=== PATIENT | male | born 1990 | race Caucasian/White ===

== ENCOUNTER → 2017-06-09 11:04 | Outpatient (REF) | payer BC, SELFPAY ==
[2017-06-09 13:33] LABS: Basophils % 0.2 % (0.1-2.0); Eosinophils # 0.1 K/mm3 (0.0-0.4); Hematocrit 53.1 % (42.0-52.0); Hemoglobin 17.3 g/dL (14.1-18.0); Lymphocytes # 1.4 K/mm3 (0.7-4.5); Lymphocytes % 9.6 K/mm3 (10-50); Mean Corpuscular HGB Conc 32.7 g/dL (31.8-35.4); Mean Corpuscular Hemoglobin 30.8 pg (27.0-31.2); Mean Corpuscular Volume 94.2 fl (80-94); Mean Platelet Volume 8.5 fl (7.4-10.4); Monocytes # 0.8 K/mm3 (0.1-1.0); Monocytes % 5.7 % (1.7-9.3); Neutrophils # 12.1 K/mm3 (1.8-7.8); Neutrophils % 83.6 % (37.0-80.0); Platelet Count 296 K/mm3 (142-424); Red Blood Count 5.63 M/mm3 (4.60-6.20); White Blood Count 14.5 K/mm3 (4.8-10.8)
[2017-06-09 14:09] LABS: Alanine Aminotransferase 37 U/L (12-78); Albumin Level 4.7 gm/dL (3.4-5.0); Albumin/Globulin Ratio 1.3 (1.1-1.8); Alkaline Phosphatase 108 U/L (46-116); Anion Gap 15.3 mEq/L (5-15); Aspartate Amino Transferase 22 U/L (15-37); Bilirubin,Total 0.5 mg/dL (0.2-1.0); Blood Urea Nitrogen 13 mg/dL (7-18); Calcium 9.5 mg/dL (8.5-10.1); Carbon Dioxide 25 mmol/L (21.0-32.0); Chloride 104 mmol/L (98-107); Chol/HDL Ratio 3.5 (1-3.5); Cholesterol 186 mg/dL (140-200); Creatinine,Serum 1.18 mg/dL (0.70-1.30); Estimated Glomerular Filt Rate 75 ml/min (>60); Free T4 (Free Thyroxine) 1.12 ng/dl (0.76-1.46); GFR (African American) 90 ML/MIN (>60); Globulin 3.5 gm/dl (1.3-3.2); Glucose 105 mg/dL (74-106); HDL Cholesterol 53 mg/dL (27-67); LDL Cholesterol 112 mg/dL (0-130); Potassium 4.3 mmoL/L (3.5-5.1); Sodium 140 mmol/L (136-145); Thyroid Stimulating Hormone 1.56 uIU/ml (0.358-3.740); Total Protein,Serum 8.2 gm/dL (6.4-8.2); Triglycerides 105 mg/dL (30-200); VLDL Cholesterol 21 mg/dL (0-40)
== END ==
LOC: LAB 11:04
PROVIDERS: Visit Provider Emergency Medicine
DX: I10 Essential (primary) hypertension (principal)
CPT/HCPCS: 80053; 80061; 84439; 84443; 85025

== ENCOUNTER → 2017-06-25 12:31 | Outpatient (CLI) | payer BC, SELFPAY ==
--- NOTE | 2017-06-25 08:29 | CA_ITS ---
PROCEDURE: 2-D M-mode and color Doppler study INDICATIONS FOR THE TEST: Chest pain COPD Heart Murmur Tobacco Smoking+ Palpitations Fatigue Syncope Edema Hypertension+Diabetes Mellitus Rheumatic Fever SOB MCDANIEL Obesity Hyperlipidemia Family History HD+ Additional History PATIENT INFORMATION HEIGHT: 71 WEIGHT:167 GENDER: Male B/P:154/92 2-D/M-MODE INTERPRETATION: 2-D MEASUREMENTS OBSERVED VALUES IN CMS Right Ventricular Dimension (RVDd) 1.9 Interventricular Septum (Thickness)(IVsd) 1.0 Left Ventricular Internal Dimensions(LVIDd) 4.5 Left Ventricular Posterior Wall (Thickness)(LVPWd) 0.9 Aortic Root 2.8 Aortic Cusp Separation 2.1 Left Atrial Dimensions (LAD) 3.6 2D 1. Left atrium is normal size, left ventricle is normal size, there is no concentric left ventricular hypertrophy, visually estimated ejection fraction 55% with no obvious regional wall motion abnormality. 2. The right atrium and right ventricle are normal size and contractility. 3. The aortic mitral and tricuspid valve are structurally normal. 4. The pulmonic valve is poorly visualized. 5. No significant pericardial effusion noted. DOPPLER INTERROGATION: Doppler interrogation of the aortic, mitral and tricuspid valve reveals presence of mild mitral and tricuspid regurgitation of no hemodynamic significance, diastolic parameters are within normal range. CONCLUSION: 1. Normal left ventricular size, preserved left ventricular systolic function, visually estimated ejection fraction 55% with no obvious regional wall motion abnormality, diastolic parameters are within normal range. 2. Mild mitral and tricuspid addition 3. No significant pericardial effusion noted.
--- NOTE | 2017-06-25 13:17 | XR_ITS ---
XR shoulder RT min 2V COMPARISON: None HISTORY: Right shoulder pain. TECHNIQUE: 3 views right shoulder FINDINGS: Is a comminuted fracture of the distal clavicle with 2 small fracture fragments between the distal clavicle and the acromion process of the scapula. The humeral head and glenoid appear intact. The soft tissues are normal. IMPRESSION: Common and fracture distal clavicle, this may not be acute as the fracture margins appear to be somewhat smoother than expected for an acute fracture
--- NOTE | 2017-06-25 13:17 | XR_ITS ---
XR scapula RT COMPARISON: None HISTORY: Scapular pain after injury TECHNIQUE: 3 views right scapula FINDINGS: The scapula is intact with no evidence of recent or old fracture. Soft tissues are normal. Again noted are the fracture fragments of the distal clavicle and again I suspect this is likely not an acute fracture but she is clinical correlation for tenderness. IMPRESSION: Right scapula negative for fracture
--- NOTE | 2017-06-25 13:17 | XR_ITS ---
XR chest 2V INDICATION: Cough COMPARISON: Portable spine chest 01/21/2015 FINDINGS: The cardiovascular structures are unremarkable. No mediastinal shift or hilar mass is evident. The lungs are well expanded and clear bilaterally. The costophrenic sulci are sharp. No significant bony anomalies are apparent. There are small calcified hilar nodes bilaterally. IMPRESSION: Negative chest.
== END ==
PROVIDERS: Family Provider Family Medicine; PCP Emergency Medicine; Visit Provider Emergency Medicine
DX: M25.511 Pain in right shoulder (principal); R05 Cough
CPT/HCPCS: 71046; 73010; 73030; 93306

== ENCOUNTER → 2018-06-10 14:22 | Outpatient (CLI) | payer BC, SELFPAY ==
[2018-06-10 15:08] LABS: Blood Urea Nitrogen 11 mg/dL (7-18); Calcium 9.5 mg/dL (8.5-10.1); Carbon Dioxide 28 mmol/L (21.0-32.0); Chloride 107 mmol/L (98-107); Creatinine,Serum 0.96 mg/dL (0.70-1.30); Estimated Glomerular Filt Rate 94 ml/min (>60); GFR (African American) 114 ML/MIN (>60); Glucose 101 mg/dL (74-106); Sodium 144 mmol/L (136-145)
[2018-06-10 15:39] LABS: Basophils # 0.1 K/mm3 (0-0.2); Basophils % 0.7 % (0.1-2.0); Eosinophils # 0.1 K/mm3 (0.0-0.4); Eosinophils % 1.6 % (0.1-12.0); Hematocrit 48.9 % (42.0-52.0); Hemoglobin 16.3 g/dL (14.1-18.0); Lymphocytes % 22.5 % (10-50); Mean Corpuscular HGB Conc 33.3 g/dL (31.8-35.4); Mean Corpuscular Hemoglobin 30.8 pg (27.0-31.2); Mean Corpuscular Volume 92.4 fl (80-94); Mean Platelet Volume 6.8 fl (7.4-10.4); Monocytes # 0.5 K/mm3 (0.1-1.0); Monocytes % 5.2 % (1.7-9.3); Neutrophils # 6.3 K/mm3 (1.8-7.8); Platelet Count 278 K/mm3 (142-424); Red Blood Count 5.29 M/mm3 (4.60-6.20); Red Cell Distribution Width 12.9 % (11.5-17.5)
== END ==
PROVIDERS: Visit Provider Orthopaedic Surgery
DX: S62.324A Displaced fracture of shaft of fourth metacarpal bone, right hand, initial encounter for closed fracture (principal)
CPT/HCPCS: 36415; 80048; 80053; 85025

== ENCOUNTER → 2018-06-29 13:06 | Outpatient (CLI) | payer BC, SELFPAY ==
--- NOTE | 2018-06-29 13:11 | XR_ITS ---
XR hand RT min 3V HISTORY: Follow-up fracture/ORIF ITS.REASON: sp ORIF RT 4th [facility] dos 06/13/18 ORDERING PHYSICIAN: Jared Copeland MD PATIENT AGE: 28 years COMPARISON: 06/07/2018 FINDINGS: A bone plate is been placed over the mid and proximal aspect of the fourth metacarpal stabilizing the comminuted fracture which is in good alignment. One small fragment is displaced radially and anteriorly about 3 mm. There is an old fifth metacarpal fracture. 2 screws are present within the middle phalanx of the fourth digit. IMPRESSION: Good alignment status post ORIF fourth metacarpal fracture. No significant callus formation
== END ==
PROVIDERS: PCP Emergency Medicine; Visit Provider Orthopaedic Surgery
DX: S62.308A Unspecified fracture of other metacarpal bone, initial encounter for closed fracture (principal); Z48.89 Encounter for other specified surgical aftercare
CPT/HCPCS: 73130

== ENCOUNTER → 2018-07-21 08:54 | Outpatient (CLI) | payer BC, SELFPAY ==
--- NOTE | 2018-07-21 09:00 | XR_ITS ---
XR hand RT min 3V HISTORY: Follow-up ORIF fourth metacarpal fracture ITS.REASON: sp ORIF RT 4TH [facility], dos 06/13/18 ORDERING PHYSICIAN: Jared Copeland MD PATIENT AGE: 28 years COMPARISON: 06/29/2018 FINDINGS: Good alignment status post ORIF fourth metacarpal fracture. Posterior bone plate remains in place. There is an ununited fragment along the anterior and mid aspect of the fourth metacarpal similar to the previous exam. There does appear to be some callus formation along the ulnar aspect of the fracture. Prior old ORIF of the middle phalanx of the fourth finger. There is an old fifth metacarpal fracture. IMPRESSION: Good alignment status post ORIF fourth metacarpal fracture with small ununited fragment along the palmar aspect
== END ==
PROVIDERS: PCP Emergency Medicine; Visit Provider Orthopaedic Surgery
DX: S62.308A Unspecified fracture of other metacarpal bone, initial encounter for closed fracture (principal); Z48.89 Encounter for other specified surgical aftercare
CPT/HCPCS: 73130

== ENCOUNTER → 2018-07-22 09:09 | Outpatient (CLI) | payer BC, SELFPAY ==
[2018-07-22 09:22] LABS: Basophils # 0.1 K/mm3 (0-0.2); Basophils % 0.4 % (0.1-2.0); Eosinophils # 0.2 K/mm3 (0.0-0.4); Eosinophils % 1.4 % (0.1-12.0); Hematocrit 45.3 % (42.0-52.0); Hemoglobin 15.3 g/dL (14.1-18.0); Lymphocytes # 2.1 K/mm3 (0.7-4.5); Lymphocytes % 19.2 % (10-50); Mean Corpuscular HGB Conc 33.9 g/dL (31.8-35.4); Mean Corpuscular Hemoglobin 31.1 pg (27.0-31.2); Mean Corpuscular Volume 91.7 fl (80-94); Mean Platelet Volume 6.7 fl (7.4-10.4); Monocytes # 0.7 K/mm3 (0.1-1.0); Monocytes % 6.5 % (1.7-9.3); Neutrophils # 7.8 K/mm3 (1.8-7.8); Neutrophils % 72.5 % (37.0-80.0); Platelet Count 328 K/mm3 (142-424); Red Blood Count 4.94 M/mm3 (4.60-6.20); Red Cell Distribution Width 12.8 % (11.5-17.5); White Blood Count 10.8 K/mm3 (4.8-10.8)
[2018-07-22 09:29] LABS: C-Reactive Protein 0.3 mg/L (0.0-0.9)
[2018-07-22 10:18] LABS: Erythrocyte Sedimentation Rate 12 mm/hr (0-15)
== END ==
PROVIDERS: Visit Provider Orthopaedic Surgery
DX: B99.9 Unspecified infectious disease (principal); Z48.89 Encounter for other specified surgical aftercare
CPT/HCPCS: 36415; 85025; 85651; 86140

== ENCOUNTER → 2018-08-01 12:25 | Outpatient (CLI) | payer BC, SELFPAY ==
[2018-08-01 12:34] LABS: Basophils # 0.1 K/mm3 (0-0.2); Basophils % 0.7 % (0.1-2.0); Eosinophils # 0.4 K/mm3 (0.0-0.4); Hematocrit 47.4 % (42.0-52.0); Hemoglobin 15.8 g/dL (14.1-18.0); Lymphocytes # 1.9 K/mm3 (0.7-4.5); Lymphocytes % 20.8 % (10-50); Mean Corpuscular HGB Conc 33.4 g/dL (31.8-35.4); Mean Corpuscular Hemoglobin 31.3 pg (27.0-31.2); Mean Corpuscular Volume 93.7 fl (80-94); Mean Platelet Volume 6.8 fl (7.4-10.4); Monocytes # 0.6 K/mm3 (0.1-1.0); Monocytes % 6.6 % (1.7-9.3); Neutrophils # 6.3 K/mm3 (1.8-7.8); Neutrophils % 67.9 % (37.0-80.0); Platelet Count 360 K/mm3 (142-424); Red Blood Count 5.06 M/mm3 (4.60-6.20); Red Cell Distribution Width 12.7 % (11.5-17.5); White Blood Count 9.3 K/mm3 (4.8-10.8)
[2018-08-01 13:07] LABS: C-Reactive Protein < 0.2 mg/L (0.0-0.9)
[2018-08-01 13:18] LABS: Erythrocyte Sedimentation Rate 12 mm/hr (0-15)
== END ==
PROVIDERS: Visit Provider Orthopaedic Surgery
DX: Z09 Encounter for follow-up examination after completed treatment for conditions other than malignant neoplasm (principal)
CPT/HCPCS: 36415; 85025; 85651; 86140

== ENCOUNTER 2018-08-01 14:08 | Outpatient (RCR) | payer BC, SELFPAY | END 2018-08-01 14:15 | disposition home or self-care (01) | LOC: OT 14:08 | PROVIDERS: Visit Provider Orthopaedic Surgery | DX: S62.324A Displaced fracture of shaft of fourth metacarpal bone, right hand, initial encounter for closed fracture (principal) | CPT/HCPCS: 97763 ==

== ENCOUNTER 2021-09-18 09:09 | Emergency (ER) | payer SELFPAY ==
[2021-09-18 09:14] VITALS: BP 153/93; PULSE 92; RESP 18; TEMP 36.9; O2SAT 98; BMI 26.6
--- NOTE | 2021-09-18 09:32 | HMH.EDGENADL ---
ED Disposition Clinical Impression: Medical clearance for incarceration, Inhalant abuse Disposition: Home, Self-Care Condition on Discharge: Good Referrals: Provider,Referral, [Primary Care Provider] - - Critical Care Critical Care Time: No Attestation: On 09/18/21, the high probability of a clinically significant, sudden or life threatening deterioration of the following system(s) required my full and direct attention, intervention and personal management. The time I documented below is in addition to time spent performing reported procedures but includes the following listed in this critical care notation. Medical Decision Making - Ulises Inquiry Pt receiving controlled substance: No Vital Signs: 09/18/21 09:14 Temperature 98.5 F Temperature Source Oral Pulse Rate [Left Radial] 92 H Respiratory Rate 18 Blood Pressure [Right Arm] 153/93 H Blood Pressure Mean [Right Arm] 113 02 Sat by Pulse Oximetry 98 Oxygen Delivery Method Room Air General Adult HPI - General Chief complaint: Medical Clearance Stated complaint: medical clearence Time Seen by Provider: 09/18/21 09:33 Mode of Arrival: Ambulatory Limitations: No Limitations Description of Symptoms (Recalled from ER Triage Doc. by RN): pt to ed in police custody for medical clearance. pt has no complaints of pain or symptoms. - History of Present Illness HPI narrative: Patient was picked up by police for public intoxication. 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 Police state that initially he was out of it but since mental status is cleared. Currently he has no complaints except that he is depressed and upset with himself. He is not suicidal. He is on medications for depression. Denies any other prescription medications. Did not use any other drugs or alcohol today. Physically he feels fine. - Related Data Home Medications Medication Instructions Recorded Confirmed Escitalopram Oxalate 10 mg PO DAILY 06/10/18 07/21/18 Trazodone HCl 50 mg PO QHS 06/10/18 07/21/18 clonazePAM [Clonazepam] See Rx Instructions .ROUTE .COMPLEX 06/10/18 07/21/18 Previous Rx's Medication Instructions Recorded acetaminophen 300 mg-codeine 30 mg 1 tab PO BID PRN #30 tab 07/13/18 tablet cyclobenzaprine 10 mg tablet 10 mg PO BID #60 tab 07/13/18 clindamycin HCl 300 mg capsule 300 mg PO QID 14 Days #56 cap 08/01/18 sulfamethoxazole 800 1 tab PO BID 14 Days #28 tab 08/01/18 mg-trimethoprim 160 mg tablet Allergies Allergy/AdvReac Type Severity Reaction Status Date / Time No Known Drug Allergies Allergy Unknown -- Verified 08/01/18 13:32 [facility] History - Hepatitis A Screen Attestation statement:: This patient has been screened for Hepatitis A risk factors. I have reviewed the patient's past medical history: Yes Medical History: Reports:: Anxiety, Depression, Hypertension Denies:: Cancer, Diabetes Mellitus Type 1, Diabetes Mellitus Type 2, Internal Pacemaker, MRSA, Seizures Other Medical History: Denies: Blood Transfusion Reaction Other Surgeries: Yes: Other. No: Pacemaker Amputation: No Fractures: Yes (finger) Comment: rt middle finger fx,rt side of jaw,rt hand - Social History Smoking Status: Current every day smoker Tobacco Type: cigarettes # Packs/Day (cigarettes): 1 Alcohol Intake: never Alcohol Intake Frequency:: a few times a week Substance Use Type: marijuana Occupational Status: employed Housing: house Household Members: significant other - Psychiatric History Pschychiatric History:: Reports:: Anxiety, Depression Family Hx:: Cancer, Coronary Artery Disease, Heart Attack, Hypertension ROS Obtained: Yes All systems reviewed & no additional complaints - Cardiovascular Cardiovascular: Denies chest pain - Respiratory Respiratory: Denies shortness of breath - Gastrointestinal Gastrointestingal: Denies: abdominal pain, vomiting Physical Exam - General General appearance: alert, in no apparent distress Comment:
--- NOTE | 2021-09-18 09:33 | PC.NURSE ---
DONOVAN GALEANO at
[2021-09-18 09:44] VITALS: BP 155/89; PULSE 89; RESP 18; TEMP 36.9; O2SAT 99
--- NOTE | 2021-09-18 20:17 | ECG_ITS ---
APPROVED REPORT Exam: Resting ECG HR:110 bpm ECG Measurements Heart Rate 110 AXES AZ 131 P 75 QRSd 117 QRS 61 QT 321 T 52 QTc 386 Conclusion Bi-atrial abnormality with short [place] ABNORMAL RHYTHM ECG UNCONFIRMED REPORT Electronically signed by : Medardo Macario MD 09/19/2021 17:01:13
== END 2021-09-18 09:45 | disposition home or self-care (01) ==
PROVIDERS: Emergency Provider Emergency Medicine
DX: Z02.89 Encounter for other administrative examinations (principal); F18.10 Inhalant abuse, uncomplicated
CPT/HCPCS: 93005; 99282

== ENCOUNTER 2021-09-18 20:11 | Emergency (ER) | payer SELFPAY ==
[2021-09-18 20:10] VITALS: BP 141/92; PULSE 92; RESP 16; TEMP 37.1; O2SAT 98; BMI 25.8
[2021-09-18 20:22] LABS: Microscopic, Urine URINE MICROSCOPIC (MICROSCOPIC)
[2021-09-18 20:27] LABS: Appearance,Urine CLEAR (Clear); Bilirubin,Urine Negative (Negative); Blood, Urine 2+ (Negative); Color,Urine YELLOW (Yellow); Glucose,Urine (UA) Negative (Negative); Ketones,Urine Negative (Negative); Leukocyte Esterase,Urine 1+ (Negative); Nitrate,Urine Negative (Negative); Protein,Urine Negative (Negative); Specific Gravity, Urine 1.015 (1.005-1.030); Urobilinogen,Urine 0.2 EU/dl (0.2)
--- NOTE | 2021-09-18 20:30 | HMH.EDMCLR ---
ED Disposition Clinical Impression: Medical clearance for incarceration, Inhalant abuse Disposition: Home, Self-Care Condition on Discharge: Good Instructions: DI for Substance Use Disorder Additional Instructions: see pcp for follow up - Critical Care Critical Care Time: No Attestation: On , the high probability of a clinically significant, sudden or life threatening deterioration of the following system(s) required my full and direct attention, intervention and personal management. The time I documented below is in addition to time spent performing reported procedures but includes the following listed in this critical care notation. Medical Decision Making - Medical Records Medical records reviewed: Yes: I reviewed the patient's medical records. - Ulises Inquiry Pt receiving controlled substance: No Vital Signs: 09/18/21 20:10 Temperature 98.8 F Temperature Source Oral Pulse Rate [Left Radial] 92 H Respiratory Rate 16 Blood Pressure [Right Arm] 141/92 H Blood Pressure Mean [Right Arm] 108 Blood Pressure Source [Right Arm] Automatic Cuff Blood Pressure Position [Right Arm] Sitting 02 Sat by Pulse Oximetry 98 Oxygen Delivery Method Room Air - Lab Data Lab results reviewed: Yes: I reviewed the patient's lab results. Orders (Tests/Meds): ORDERS Category Date Time Status UDS [Drug Screen,Urine] Stat Lab 09/18/21 20:15 Received Urinalysis and Microscopic Stat Lab 09/18/21 20:15 Received - ECG Data Tracing #1 Normal Sinus Rhythm: Yes Ischemic changes: non-specific ST-T wave changes Medical Decision Narrative: stable exam at this time - Medical Clearance HPI - General Chief complaint: Medical Clearance Stated complaint: Drug use Time Seen by Provider: 09/18/21 20:30 Mode of Arrival: EMS Source of Information: Patient, EMS, Medical Record Limitations: No Limitations Description of Symptoms (Recalled from ER Triage Doc. by RN): PT WAS UNRESPONSIVE AFTER HUFFING AIR DUSTER IN THE [facility]. EMS REPORTS NORMAL VS ON THE SCENE. PT AWAKE, ALERT AND ORIENTED UPON ARRIVAL TO ER. VOICES NO COMPLAINTS. - History of Present Illness HPI Narrative: reports huffing today but at baseline - no specific c/o MD complaint: medical clearance requested Onset (ago): hour(s) Reason for Medical Clearance: intoxication Place: street Alleged Intoxication: Yes Traumatic Symptoms: denies traumatic injury Associated Symptoms: denies other symptoms Treatments Prior to Arrival: none Home medications: Home Medications Medication Instructions Recorded Confirmed Escitalopram Oxalate 10 mg PO DAILY 06/10/18 07/21/18 Trazodone HCl 50 mg PO QHS 06/10/18 07/21/18 clonazePAM [Clonazepam] See Rx Instructions .ROUTE .COMPLEX 06/10/18 07/21/18 Previous Rx's Medication Instructions Recorded acetaminophen 300 mg-codeine 30 mg 1 tab PO BID PRN #30 tab 07/13/18 tablet cyclobenzaprine 10 mg tablet 10 mg PO BID #60 tab 07/13/18 clindamycin HCl 300 mg capsule 300 mg PO QID 14 Days #56 cap 08/01/18 sulfamethoxazole 800 1 tab PO BID 14 Days #28 tab 08/01/18 mg-trimethoprim 160 mg tablet Allergies/Adverse reactions: Allergies Allergy/AdvReac Type Severity Reaction Status Date / Time No Known Drug Allergies Allergy Unknown -- Verified 08/01/18 13:32 [facility] History - Hepatitis A Screen Attestation statement:: This patient has been screened for Hepatitis A risk factors. I have reviewed the patient's past medical history: Yes Medical History: Reports:: Anxiety, Depression, Hypertension Denies:: Cancer, Diabetes Mellitus Type 1, Diabetes Mellitus Type 2, Internal Pacemaker, MRSA, Seizures Other Medical History: Denies: Blood Transfusion Reaction Other Surgeries: Yes: Other. No: Pacemaker Amputation: No Fractures: Yes (finger) Comment: rt middle finger fx,rt side of jaw,rt hand - Social History Smoking Status: Current every day smoker Tobacco Type: cigarettes # Packs/Day
[2021-09-18 20:38] LABS: Amphetamine/Metha Screen,Urine Negative ng/ml (<1000)
[2021-09-18 20:39] LABS: Barbiturates Screen,Urine Negative ng/ml (<200); Benzodiazepines Screen,Urine Negative ng/ml (<200)
[2021-09-18 20:40] LABS: Cocaine Screen,Urine Negative ng/ml (<300); Methadone Screen,Urine Negative ng/ml (<300)
[2021-09-18 20:41] LABS: Cannabinoid Screen,Urine Negative ng/ml (<50)
[2021-09-18 20:42] LABS: Opiate Screen,Urine Negative ng/ml (<300); Phencyclidine Screen,Urine Negative ng/ml (<25)
[2021-09-18 21:05] LABS: Bacteria,Urine 1+ /lpf; Mucus,Urine 1+ /lpf
[2021-09-18 21:42] VITALS: BP 133/71; PULSE 78; RESP 16; TEMP 36.7; O2SAT 98
== END 2021-09-18 21:44 | disposition home or self-care (01) ==
PROVIDERS: Emergency Provider Emergency Medicine
DX: Z02.89 Encounter for other administrative examinations (principal); F18.10 Inhalant abuse, uncomplicated
CPT/HCPCS: 80305; 81001; 87086; 99282